=== PATIENT | female | born 1980 | race Caucasian/White ===

== ENCOUNTER → 2019-06-17 | Day surgery (SDC) | payer OTHER ==
[~2019-06-17] MED LIST: AMIT10TA PO; IV RINGERS,LACTATED 1000ML 1,000 ML IV ONE; LIDOCAINE 2% PF 5 ML VIAL. ONE; PROPOFOL 20 ML IV ONE
--- NOTE | 2019-06-17 11:14 | PREOP HP ---
DATE OF SERVICE: 06/17/2019 DATE OF PROCEDURE: 06/17/2019 REQUESTING PHYSICIAN: Dr. Steve Mcgregor. PRIMARY CARE PHYSICIAN: Dr. Steve Mcgregor. REASON FOR PROCEDURE: Followup of gastrointestinal metaplasia. HISTORY OF PRESENT ILLNESS: This is a 39-year-old female who presents for followup of her gastrointestinal metaplasia and was last seen on upper endoscopy on 06/25/2016. ALLERGIES: No known drug allergies. PAST MEDICAL HISTORY: Rectal bleeding, anal fissure. FAMILY MEDICAL HISTORY: Ovarian cancer in her aunt. SOCIAL HISTORY: No tobacco, alcohol or IV drug abuse. MEDICATIONS: MAR reviewed. REVIEW OF SYSTEMS: A 13-point review of systems was done. It is positive as per HPI and otherwise negative. PHYSICAL EXAMINATION: VITAL SIGNS: She is afebrile and vital signs are stable. GENERAL: She is a well-developed, well-nourished female, in no apparent distress. HEENT: Oropharynx is clear. CARDIOVASCULAR: S1, S2. LUNGS: Clear. ABDOMEN: Normoactive bowel sounds, soft, nontender, nondistended. EXTREMITIES: No edema. NEUROLOGIC: Awake, alert and oriented x 3. ASSESSMENT AND PLAN: Gastrointestinal metaplasia. Proceed with upper endoscopy for further evaluation. The risks and benefits including bleeding, perforation, non-diagnosis and sedation have been explained and she has agreed to proceed. KYRIE BARNES MD DR: BELA/abdifatah JOB#: [id number] / [id number]
[2019-06-17 11:19] VITALS: BP 98/55
--- NOTE | 2019-06-18 12:07 | PATHOLOGY ---
[facility] Accession Number: [id number] . 01 Material submitted: . PART A: small bowel - SMALL BOWEL BIOPSY PART B: stomach - GASTRIC ANTRUM AND BODY BIOPSY . 01 Clinical history: . Abdominal pain . 02 Diagnosis: A. Duodenal biopsy: - No significant pathologic abnormalities. . B. Gastric biopsies, gastric antrum and body: - Chronic gastritis, mild. (JPM:[facility] 06/18/2019) [facility] 06/18/2019 0924 Local . 02 Comment: Sections of the duodenal biopsy reveal segments of duodenal mucosa. Where best oriented, the mucosal villi show no sprue-like changes or significant inflammatory changes. . Sections of the gastric antral and body biopsy reveal segments of gastric antral/body transition mucosa and gastric antral/duodenal mucosa showing congestion and mild chronic inflammation. A properly controlled immunoperoxidase stain for Helicobacter is obtained and is negative for Helicobacter organisms. There is no evidence of malignancy. (JPM:[facility] 06/18/2019) . Special stain performed: Immunoperoxidase for Helicobacter on B1. . 02 Electronically signed: . Luis Mcclure MD, Pathologist NPI- [id number] . 01 Gross description: . A. Received in formalin labeled "Michelle, Britt, small bowel," and additionally labeled on the requisition as "BX," are 4 segments of mason soft tissue measuring 1.0 x 0.9 x 0.3 cm in aggregate dimensions and ranging from 0.4 to 0.5 cm in maximum dimension. The specimen is submitted entirely in cassette A1. . B. Received in formalin labeled "Michelle, Britt, gastric antrum and body BX," are 4 segments of mason soft tissue measuring 1.1 x 0.6 x 0.3 cm in aggregate dimensions and ranging from 0.3 to 0.6 cm in maximum dimension. The specimen is submitted entirely in cassette B1. (TSD; 06/17/2019) TOB/TOB 06/17/2019 1950 Local . 02 Pathologist provided ICD-10: K29.50 . 02 CPT . 089138, [id number], E32010 Specimen Comment: A courtesy copy of this report has been sent to [phone] Specimen Comment: [id number] Specimen Comment: Report sent to / DR MEYER Performed at: 01 [facility] [address] [id number] MD Klaus Yee MD Phone: [phone] Performed at: 02 [facility] [address] [place] [id number] MD Luis Mcclure MD Phone: [phone]
== END ==
LOC: SURG 09:12
PROVIDERS: ATTEND Internal Medicine Gastroenterology
DX: K29.50 Unspecified chronic gastritis without bleeding (principal)
CPT/HCPCS: 43239; 81025; 88305; 88342; J2001; J2704